=== PATIENT | male | born 1945 ===

== ENCOUNTER → 2021-12-27 | Outpatient (CLI) | payer MEDICARE, OTHER | LOC: COL.PUL 12-12 11:00 | DX: I27.20 Pulmonary hypertension, unspecified (principal) | CPT/HCPCS: A9540; A9567; J7674 ==

== ENCOUNTER → 2022-04-19 | Outpatient (CLI) | payer MEDICARE | LOC: COL.VAS 12:16 | DX: I27.20 Pulmonary hypertension, unspecified (principal) ==

== ENCOUNTER → 2023-06-03 | Outpatient (CLI) | payer MEDICARE, OTHER ==
[~2023-06-03] MED LIST: COMPLETE MULTI1 TAB PO; FLOMAX 0.40.4 MG/CAP PO; INDERAL40 MG PO; PHARMASSURE MA500 MG PO; RAZADYNE8 MG PO; STIOLTO RESPIMAT4 GM IH; ZOCOR 40MG40 MG PO
== END ==
LOC: COL.VAS 12:28
DX: I27.0 Primary pulmonary hypertension (principal); I51.7 Cardiomegaly